=== PATIENT | male | born 1985 | race Caucasian/White ===

== ENCOUNTER 2019-07-21 02:08 | Emergency (ER) | payer BC, OTHER, SELFPAY ==
--- NOTE | 2019-07-21 07:49 | RAD ---
EXAM: 3 views of the right wrist HISTORY: Wrist pain COMPARISON: None FINDINGS: 3 views of the right wrist shows no evidence of acute fracture or dislocation. No soft tiss ue swelling is seen. No degenerative changes are present. IMPRESSION: No evidence of acute osseous abnormality.
== END 2019-07-21 03:07 | disposition home or self-care (01) ==
LOC: ERS 02:08
DX: S61.511A Laceration without foreign body of right wrist, initial encounter (principal); S60.211A Contusion of right wrist, initial encounter; F32.9 Major depressive disorder, single episode, unspecified; F41.9 Anxiety disorder, unspecified; F43.10 Post-traumatic stress disorder, unspecified; V89.2XXA Person injured in unspecified motor-vehicle accident, traffic, initial encounter
CPT/HCPCS: 12001

== ENCOUNTER 2021-04-05 00:28 | Emergency (ER) | payer OTHER, SELFPAY | END 2021-04-05 03:10 | disposition home or self-care (01) | LOC: ERS 00:28 | DX: Z00.8 Encounter for other general examination (principal); M25.532 Pain in left wrist; V49.9XXA Car occupant (driver) (passenger) injured in unspecified traffic accident, initial encounter | CPT/HCPCS: 99283 ==